=== PATIENT | female | born 1950 | race Caucasian/White ===

== ENCOUNTER → 2016-12-06 | Outpatient (CLI) | payer BC ==
[~2016-12-06] MED LIST: AMLO-110 PO; ASTNS; ATV1 PO; CALCIUM/MAG PO; CHROPOW21 PO; CLR10 PO; COQ10 PO; CTP3 PO; GLUCOSAMINE/CHOND PO; LEVO50TA60 PO; MOME50SP5; MULT-506 PO; OLOP0.1S2 OP; TRIA0.1C20 TD; VIT B-6 PO; VIT C PO; VITA100C4 PO
--- NOTE | 2016-12-06 14:05 | MAMMOGRAPHY REPORT ---
BILATERAL DIGITAL SCREENING MAMMOGRAM TOMOSYNTHESIS WITH CAD: 12/06/2016 CLINICAL HISTORY: Asymptomatic. Personal history of breast cancer. TECHNIQUE: Breast tomosynthesis in addition to standard 2D mammography was performed. Current study was also evaluated with a Computer Aided Detection (CAD) system. COMPARISON: Comparison is made to exams dated: 12/05/2015 mammogram, 11/20/2014 mammogram, 10/29/2013 m ammogram, 10/25/2013 mammogram, 10/24/2012 mammogram, and 10/18/2011 mammogram - [facility] enter. BREAST COMPOSITION: The tissue of both breasts is heterogeneously dense, which may obscure small mas ses. FINDINGS: There is asymmetry of the size of the breasts, skin irregularity and expected architectural distortion in the retroareolar right breast, at the site of prior lumpectomy. Surgical clips projec t over the right axilla. There are benign appearing coarse calcifications in the right breast. No n ew suspicious mass, architectural distortion or cluster of microcalcifications is seen. IMPRESSION: ACR BI-RADS CATEGORY 1: NEGATIVE There is no mammographic evidence of malignancy. A 1 year screening mammogram is recommended. The pa tient will receive written notification of the results. Approximately 10% of breast cancers are not detected with mammography. A negative mammographic report should not delay biopsy if a clinically suggestive mass is present. Suzette Castaneda M.D. ay/:12/06/2016 12:08:56 Fancy Wire Drawer: Jonathon OCHOA(R)(Hu), [facility] letter sent: Normal 1/2 BI-RADS Code: ACR BI-RADS Category 1: Negative
== END | disposition home or self-care (01) ==
LOC: C.MAMM 11:31
PROVIDERS: ATTEND Obstetrics & Gynecology
DX: Z12.31 Encounter for screening mammogram for malignant neoplasm of breast (principal); Z85.3 Personal history of malignant neoplasm of breast

== ENCOUNTER → 2017-12-07 | Outpatient (CLI) | payer OTHER ==
[~2017-12-07] MED LIST changes: -AMLO-110 PO; +AMLO5TAB3 PO
--- NOTE | 2017-12-07 14:54 | MAMMOGRAPHY REPORT ---
BILATERAL DIGITAL SCREENING MAMMOGRAM TOMOSYNTHESIS WITH CAD: 12/07/2017 CLINICAL HISTORY: Routine screening. Patient has no complaints. TECHNIQUE: The study was acquired using full field digital technology and interpreted from soft copy. Breast tomosynthesis in addition to standard 2D mammography was performed. Current study was also ev aluated with a Computer Aided Detection (CAD) system. COMPARISON: Comparison is made to exams dated: 12/06/2016 mammogram, 12/05/2015 mammogram, 11/20/2014 m ammogram, 10/29/2013 mammogram, 10/24/2012 mammogram, and 10/15/2010 mammogram - [facility] nter. BREAST COMPOSITION: The tissue of both breasts is heterogeneously dense, which may obscure small mass es. FINDINGS: There are linear calcifications near the surgical site in the upper outer middle to anterior right br east, for which additional spot magnification views are recommended. There is evidence of prior right breast surgery, with the lumpectomy bed noted in the right upper out er quadrant, surgical clips are also seen projecting over the right pectoralis muscle on the MLO view . No other suspicious mass, architectural distortion or cluster of microcalcifications is seen. IMPRESSION: ACR BI-RADS CATEGORY 0: INCOMPLETE EVALUATION: NEED ADDITIONAL IMAGING EVALUATION The linear calcifications near the surgical site in the right upper outer breast need additional eval uation. The patient will be called to schedule an appointment. Some breast cancers are not detected with mammography. A negative mammographic report should not lakshmi y biopsy if a clinically suggestive mass is present. Suzette Castaneda M.D. ay/:12/07/2017 12:28:21 Building Performance Specialist: Elena Salazar, [facility] letter sent: Addl Imaging 0 BI-RADS Code: ACR BI-RADS Category 0: Incomplete Evaluation: Need Additional Imaging Evaluation
== END | disposition home or self-care (01) ==
LOC: C.MAMM 11:31
PROVIDERS: ATTEND Obstetrics & Gynecology
DX: Z12.31 Encounter for screening mammogram for malignant neoplasm of breast (principal); R92.1 Mammographic calcification found on diagnostic imaging of breast

== ENCOUNTER → 2017-12-14 | Outpatient (CLI) | payer OTHER ==
--- NOTE | 2017-12-14 13:37 | MAMMOGRAPHY REPORT ---
UNILATERAL RIGHT DIGITAL DIAGNOSTIC MAMMOGRAM: 12/14/2017 CLINICAL HISTORY: Callback from screening mammogram for right breast calcifications. TECHNIQUE: The study was acquired using full field digital technology and interpreted from soft copy. Spot magnification right CC and ML views were obtained. COMPARISON: Comparison is made to exams dated: 12/07/2017 mammogram, 12/06/2016 mammogram, 12/05/2015 ma mmogram, 11/20/2014 mammogram, 10/29/2013 ultrasound, and 10/25/2013 mammogram - [facility] enter. BREAST COMPOSITION: The tissue of right breast is heterogeneously dense, which may obscure small mass es. FINDINGS: Spot magnification views of the right breast demonstrate scattered coarse benign dystrophic calcifica tions at the lumpectomy bed in the right central/12:00 breast. In the right lateral posterior breast , slightly lateral and posterior to the surgical bed, there are grouped faint amorphous calcification s, best seen on the cc view but thought to project at approximately 9:00 based on the ML view. The c alcifications measure at least 1.5 x 1.0 cm in extent. The calcifications are indeterminant for claudine gnancy and stereotactic biopsy is recommended for further evaluation. IMPRESSION: ACR BI-RADS CATEGORY 4: SUSPICIOUS Grouped faint amorphous calcifications in the right lateral posterior breast are indeterminate and st ereotactic biopsy is recommended for further evaluation. A phone call was made to the physician's office to confirm faxed results were received. The patient has been verbally notified of the results. She tentatively scheduled the biopsy before l eaving the department. Some breast cancers are not detected with mammography. A negative mammographic report should not lakshmi y biopsy if a clinically suggestive mass is present. Prachi Butts M.D. ah/:12/14/2017 12:09:08 Candy Dipper: RT Carlo(Kevin)(M), [facility] letter sent: Abnormal 4/5 BI-RADS Code: ACR BI-RADS Category 4: Suspicious
== END | disposition home or self-care (01) ==
LOC: C.MAMM 10:57
PROVIDERS: ATTEND Obstetrics & Gynecology
DX: R92.1 Mammographic calcification found on diagnostic imaging of breast (principal)

== ENCOUNTER → 2017-12-23 | Outpatient (CLI) | payer OTHER ==
--- NOTE | 2017-12-23 13:15 | Discharge Instructions ---
Discharge Instructions Procedure Procedure Date: Dec 23, 2017. Reason for visit: Right Calcs. Discharge Discharge Date: Dec 23, 2017. Discharge Diagnosis: status post breast biopsy Instructions Activity Recommendations: Additional Limitations (see below) Return to School/Work: no limitations Recommended Home Diet: No Limitations Provider Instructions: ACTIVITY RECOMMENDATIONS: * No lifting, pushing, pulling or exercising the affected side for three days. RETURN TO SCHOOL/WORK: * You may return to work/school after the procedure, but do not perform any strenuous activities for 24 to 48 hours. MEDICATIONS: * Tylenol (two 325 mg) every four to six hours if needed for mild pain (if not allergic to Tylenol). DIET: * Resume previous diet. SPECIAL CARE INSTRUCTIONS: * Keep biopsy site dry for 24 hours. May shower after 24 hours, but do not soak (bathe) incision. * May remove Tegaderm (plastic patch) 24 hours after procedure * Leave the steri-strips on for one week. Allow the steri-strips to fall off by themselves. If not off after one week, you may remove them. You may place a Bandaid crosswise over the strips, if desired. * Apply ice 10 minutes on and 10 minutes off as needed. * Wear a bra at bedtime to sleep more comfortably for 2-3 days. * Your referring physician should have the results after approximately 5 to 7 business days. * Call for unusual bleeding, fever, drainage, etc or if you have any questions call during normal business hours or after hours call Dr Butts, [phone]. FOLLOW UP VISIT: Follow-up with Referring Physician as scheduled. Allergies Coded Allergies: No Known Allergies (Verified Allergy, Unknown, NONE, 09/13/08) Shannen Glover Recommendations: Call your doctor if: * Temperature above 101 degrees * Pain not relieved by pain medicine ordered * There is increased drainage or redness from any incision * You have any unanswered questions or concerns. Your Doctors Instructions noted above were prepared by provider Prachi Butts. Patient Signature Section: Patient Instructions Signature Page Charity Mason Patient (or Guardian) Signature/Date: I have read and understand the instructions given to me by my caregivers. Caregiver/RN/Doctor Signature/Date: The above-named patient and/or guardian has received patient instructions on this date. + Original Patient Signature Page (only) stays with chart. Please make copy for patient.
--- NOTE | 2017-12-23 15:39 | MAMMOGRAPHY REPORT ---
STEREOTACTIC GUIDED BIOPSY RIGHT BREAST: 12/23/2017 CLINICAL HISTORY: Indeterminate calcifications in the right lateral posterior breast. PATIENT CONSENT: The procedure, risks, benefits, and alternatives of stereotactic biopsy with clip pl acement were discussed with the patient, and verbal and written consent was obtained. A timeout was performed immediately prior to the procedure. PROCEDURE DESCRIPTION: With stereotactic guidance, aseptic technique, and lidocaine as a local anesth etic (1% lidocaine to anesthetize the skin and 1% lidocaine with epinephrine to anesthetize the deepe r tissues), the calcifications of concern in the right lateral posterior breast were sampled multiple times with a 9-gauge vacuum-assisted biopsy needle (VisualCV). The path of approach was caudocra nial. The specimen radiograph demonstrates calcifications to be present in the samples. A metallic marker clip was placed at the biopsy site. Postprocedural mammograms were obtained to confirm clip p lacement. Direct pressure was applied at the biopsy site until hemostasis was achieved. The patient tolerated the procedure without complication. She was given wound care instructions. COMPARISON: Comparison is made to exams dated: 12/14/2017 mammogram, 12/07/2017 mammogram, 12/06/2016 alexandra mogram, 12/05/2015 mammogram, 11/20/2014 mammogram, and 10/25/2013 mammogram - [facility]. IMPRESSION: STEREOTACTIC GUIDED BIOPSY Stereotactic biopsy of indeterminate calcifications in the right lateral breast, with clip placement. The patient will receive pathology results from her referring provider. Prachi Butts M.D. /:12/23/2017 13:19:03 Attending Technologist: RT Anthony(Kevin)(M), [facility] Broach Trouble Shooter: Elena Salazar, [facility]
--- NOTE | 2017-12-23 15:40 | MAMMOGRAPHY REPORT ---
UNILATERAL RIGHT DIGITAL DIAGNOSTIC MAMMOGRAM: 12/23/2017 CLINICAL HISTORY: Status post right breast stereotactic biopsy. TECHNIQUE: The study was acquired using full field digital technology and interpreted from soft copy. Postprocedural right CC and ML views were obtained. COMPARISON: Comparison is made to exams dated: 12/14/2017 mammogram, 12/07/2017 mammogram, 12/06/2016 alexandra mogram, 12/05/2015 mammogram, and 11/20/2014 mammogram - [facility]. BREAST COMPOSITION: The tissue of right breast is heterogeneously dense, which may obscure small mass es. FINDINGS: A new biopsy marker clip is seen at the site of the biopsied calcifications in the right la teral breast at approximately 9:00. No significant postbiopsy hematoma is seen. IMPRESSION: POST PROCEDURE IMAGING FOR MARKER PLACEMENT New biopsy marker clip status post right breast stereotactic biopsy. Pathology results are pending. Some breast cancers are not detected with mammography. A negative mammographic report should not lakshmi y biopsy if a clinically suggestive mass is present. Prachi Butts M.D. /:12/23/2017 13:30:58 Patient Support Specialist: Elena Salazar [facility] BI-RADS Code: Post Procedure Imaging For Marker Placement
== END | disposition home or self-care (01) ==
LOC: C.MAMM 12:29
PROVIDERS: ATTEND Obstetrics & Gynecology
DX: R92.0 Mammographic microcalcification found on diagnostic imaging of breast (principal)